=== PATIENT | female | born 1975 | race Caucasian/White ===

== ENCOUNTER 2024-09-28 07:06 | Day surgery (SDC) | payer BC ==
[2024-09-24 08:33] VITALS: BMI 28.5
[2024-09-28] MEDS ORDERED: Bupivacaine HCl 0.5%/Epinephrine 1:200,000/PF 30 ml Vial ONE (10:31)
[2024-09-28] MEDS ORDERED: CEFAZOLIN 2 GM VIAL ONE (10:31)
[2024-09-28] MEDS ORDERED: Ondansetron PF 4 MG/2 ML Vial ONE (10:36)
[2024-09-28] MEDS ORDERED: Lidocaine 1% PF 5 ML VIAL ONE (10:36)
[2024-09-28] MEDS ORDERED: PHENYLEPHRINE-NS 100 MCG/ML 10 ML SYRINGE ONE (10:53)
[2024-09-28] MEDS ORDERED: HYDROcodone/Acetaminophen 5/325 mg Tablet ONE (12:39)
== END 2024-09-28 12:55 | disposition home or self-care (01) ==
LOC: CSHSDC 07:06
PROVIDERS: ATTEND Surgery
PROC: 0HBU0ZZ Excision of Left Breast, Open Approach (ICD-10-PCS; principal; 2024-09-28)
DX: D05.12 Intraductal carcinoma in situ of left breast (principal); Z87.891 Personal history of nicotine dependence
CPT/HCPCS: 19285; 76098; 88307; 88361; J1100; J2405; J3010